=== PATIENT | male | born 1955 | race Caucasian/White ===

== ENCOUNTER 2018-03-29 15:24 | Outpatient (CLI) | payer MEDICARE, MEDICAID ==
[~2018-03-29] VITALS: Ht 182.9 cm; Wt 112.0 kg
[~2018-03-29 15:24] MED LIST: ACET-2119 PO; ALBU1.257 NEB; ALBU18HF2 IH; BACL10TA PO; CITA20TA19 PO; FURO20TA4 PO; LISI40TA4 PO; LOVA20TA2 PO; OXYGEN NS; TRAZ-146 PO; WARF-55 PO
[2018-03-29] MEDS ORDERED: LISI-645 PO (16:02)
[2018-03-29] MEDS ORDERED: FURO-149 PO (16:02)
[2018-03-29 16:51] LABS: BASOPHILS # (AUTO) 0.1 X10'3 (0-0.2); BASOPHILS % (AUTO) 1.1 % (0-1); EOSINOPHILS # (AUTO) 0.2 X10'3 (0-0.9); EOSINOPHILS % (AUTO) 3.9 % (0-6); LYMPHOCYTES # (AUTO) 1.5 X10'3 (1.1-4.8); LYMPHOCYTES % (AUTO) 24.4 % (21-51); MEAN CORPUSCULAR HEMOGLOBIN 30.3 PG (27.0-31.0); MEAN CORPUSCULAR HGB CONC 33.7 % (33.0-36.5); MEAN PLATELET VOLUME 6.5 FL (7.4-10.4); MONOCYTES # (AUTO) 0.8 X10'3 (0-0.9); MONOCYTES % (AUTO) 13.2 % (2-12); NEUTROPHILS # (AUTO) 3.4 X10'3 (1.8-7.7); NEUTROPHILS % (AUTO) 57.4 % (42-75); PRE OP HEMATOCRIT 32.4 % (42.0-52.0); PRE OP PLATELET COUNT 275 X10'3 (140-440); RED BLOOD COUNT 3.61 X10'6 (4.70-6.10); RED CELL DISTRIBUTION WIDTH 15.6 % (11.5-14.5)
[2018-03-29 17:02] LABS: PRE OP HEMOGLOBIN 10.9 g/dL (14.0-17.9)
[2018-03-29 17:16] LABS: ALBUMIN 3.5 G/DL (3.4-5.0); ALBUMIN/GLOBULIN RATIO 1.1 (1.1-1.5); ALKALINE PHOSPHATASE 70 IU/L (46-116); BLOOD UREA NITROGEN 25 MG/DL (7-18); BUN/CREATININE RATIO 18.2 (5.4-32.0); CALCIUM 8.4 MG/DL (8.5-10.1); CHLORIDE 109 MMOL/L (99-107); CREATININE 1.37 MG/DL (0.60-1.10); PRE OP ALT 21 U/L (30-65); PRE OP ANION GAP 9 (8-16); PRE OP AST 19 U/L (10-37); PRE OP BILIRUB, TOTAL 0.9 MG/DL (0.0-1.0); PRE OP GLUCOSE 105 MG/DL (70-104); PRE OP POTASSIUM 4.2 MMOL/L (3.4-5.1); PRE OP SODIUM 144 MMOL/L (135-145); TOTAL CARBON DIOXIDE 26.2 MMOL/L (24-32); TOTAL PROTEIN 6.8 G/DL (6.4-8.2); eGFR 52 ML/MIN
[2018-04-03] MEDS ORDERED: ringers solution, lacted 1,000 ML IV SCH (05:00)
[2018-04-03] MEDS ORDERED: famotidine 20mg tablet PO ONE (05:30)
== END 2018-03-29 23:59 | disposition home or self-care (01) ==
LOC: PRE-OP 15:24 → EDSTATUS 04-03 07:30
PROVIDERS: ATTEND Orthopaedic Surgery
DX: Z01.818 Encounter for other preprocedural examination (principal); M25.512 Pain in left shoulder; M75.02 Adhesive capsulitis of left shoulder; I10 Essential (primary) hypertension; Z87.891 Personal history of nicotine dependence
CPT/HCPCS: 36415; 80053; 85025

== ENCOUNTER 2020-06-19 11:09 | Observation (INO) | payer MEDICARE, MEDICAID ==
[2020-06-15 10:44] LABS: BASOPHILS # (AUTO) 0.1 X10'3 (0-0.2); EOSINOPHILS # (AUTO) 0.4 X10'3 (0-0.9); EOSINOPHILS % (AUTO) 4.7 % (0-6); LYMPHOCYTES # (AUTO) 1.5 X10'3 (1.1-4.8); MEAN CORPUSCULAR HEMOGLOBIN 30.8 PG (27.0-31.0); MEAN CORPUSCULAR VOLUME 93.2 FL (78-98); MEAN PLATELET VOLUME 6.7 FL (7.4-10.4); MONOCYTES % (AUTO) 11.2 % (2-12); NEUTROPHILS # (AUTO) 5.7 X10'3 (1.8-7.7); NEUTROPHILS % (AUTO) 66.1 % (42-75); PRE OP HEMATOCRIT 42.3 % (42.0-52.0); PRE OP PLATELET COUNT 227 X10'3 (140-440); RED BLOOD COUNT 4.54 X10'6 (4.70-6.10); RED CELL DISTRIBUTION WIDTH 13.4 % (11.5-14.5)
[2020-06-15 10:47] LABS: CLARITY,URINE CLEAR (Clear); COLOR,URINE YELLOW (Yellow); GLUCOSE, URINE NEGATIVE (Neg); KETONES,URINE NEGATIVE (Neg); LEUKOCYTE ESTERASE ,URINE NEGATIVE (Neg); NITRITES, URINE NEGATIVE (Neg); OCCULT BLOOD,URINE NEGATIVE (Neg); PH,URINE 5.5 (4.8-8.0); PROTEIN,URINE TRACE mg/dl (Neg); UROBILINOGEN,URINE 0.2 E.U/dL (0.2-1.0)
[2020-06-15 10:48] LABS: UA COLLECTION TYPE CLN CATCH MIDSTREAM
[2020-06-15 10:55] LABS: MUCUS STRANDS MANY /LPF (Neg); PRE OP PROTIME 10.8 SECONDS (9.0-12.0); SQUAMOUS EPITHELIAL CELL,UR FEW /LPF (FEW)
[2020-06-15 10:57] LABS: COARSE GRANULAR CAST 0-3 /LPF (NEGATIVE); HYALINE CASTS 0-3 /LPF (NEGATIVE)
[2020-06-15 10:58] LABS: WAXY CASTS,URINE 0-3 /LPF (NEGATIVE)
[2020-06-15 10:59] LABS: BACTERIA,URINE FEW /HPF (Neg); RBC,URINE 0-2 /HPF (0-2); WBC,URINE 0-4 /HPF (0-4)
[2020-06-15 11:05] LABS: ALBUMIN 3.5 G/DL (3.4-5.0); ALBUMIN/GLOBULIN RATIO 0.8 (1.1-1.5); ALKALINE PHOSPHATASE 71 IU/L (46-116); BLOOD UREA NITROGEN 28 MG/DL (7-18); BUN/CREATININE RATIO 18.9 (5.4-32.0); CALCIUM 9.1 MG/DL (8.5-10.1); CHLORIDE 106 MMOL/L (99-107); CREATININE 1.48 MG/DL (0.60-1.10); PRE OP ALT 16 U/L (30-65); PRE OP ANION GAP 9 (8-16); PRE OP AST 13 U/L (10-37); PRE OP BILIRUB, TOTAL 0.8 MG/DL (0.0-1.0); PRE OP GLUCOSE 90 MG/DL (70-104); PRE OP POTASSIUM 4.6 MMOL/L (3.4-5.1); PRE OP SODIUM 143 MMOL/L (135-145); TOTAL CARBON DIOXIDE 28.2 MMOL/L (24-32); TOTAL PROTEIN 7.8 G/DL (6.4-8.2); eGFR 47 ML/MIN
[2020-06-19] VITALS (18 sets, daily range): BP systolic 101–160; BP diastolic 53–102
[~2020-06-19] VITALS: Ht 182.9 cm; Wt 111.1 kg
[~2020-06-19 11:09] MED LIST changes: -ACET-2119 PO; +ACET-2615 PO; -ALBU1.257 NEB; -ALBU18HF2 IH; +APIX5TAB3 PO; -BACL10TA PO; -CITA20TA19 PO; +CYCL-1 PO; +FURO-150 PO; -FURO20TA4 PO; +GENTAMICIN IV ONE; -LOVA20TA2 PO; +METH10TA4 PO; +NORMAL SALINE IV ONE; -OXYGEN NS; +ROSU10TA2 PO; +SERT50TA PO; -TRAZ-146 PO; +TRAZ150T78 PO; -WARF-55 PO; +clindamycin-Cleocin 900mg/D5W 50 ML IV ONE; +famotidine 20mg tablet PO ONE; +ringers solution, lacted 1,000 ML IV SCH
[2020-06-19] MEDS ORDERED: INDOCYANINE GREEN 25 MG/10 ML VIAL IV ONE ×2 (13:35→15:42)
[2020-06-19] MEDS ORDERED: sevoflurane 250ml liquid IH ONE (15:21)
[2020-06-19] MEDS ORDERED: phenylephrine 10mg/ml inj. ONE (15:21)
[2020-06-19] MEDS ORDERED: rocuronium 10mg/ml inj IV ONE ×2 (15:21→16:03)
[2020-06-19] MEDS ORDERED: midazolam 2 mg/2 ml injection ONE (15:31)
[2020-06-19] MEDS ORDERED: fentaNYL /PF 50mcg/ml 5ml ampule ONE (15:31)
[2020-06-19] MEDS ORDERED: BUPIVAcaine/PF 2.5 mg/ml (0.25%) 30ml vial ONE ×2 (15:48→15:55)
[2020-06-19] MEDS ORDERED: ePHEDrine 50MG/ML INJ. ONE (16:03)
[2020-06-19] MEDS ORDERED: propofol inj 20 ML IV ONE (16:03)
[2020-06-19] MEDS ORDERED: 0.9 % SODIUM CHLORIDE 10 ML VIAL ONE (16:03)
[2020-06-19] MEDS ORDERED: ondansetron/PF 4mg/2ml inj ONE (16:04)
[2020-06-19] MEDS ORDERED: dexamethasone sod phosphate 4mg/ml inj. ONE (16:04)
[2020-06-19] MEDS ORDERED: LIDOcaine 2% (20mg/ml) 5ml vial ONE (16:04)
[2020-06-19] MEDS ORDERED: glycopyrrolate 0.2mg/ml inj ONE (17:15)
[2020-06-19] MEDS ORDERED: neostigmine methylsulfate 1 MG/ML 10ml vial ONE (17:15)
[2020-06-19] MEDS ORDERED: ondansetron/PF 4mg/2ml inj IV PRN ×2 (17:35→17:45)
--- NOTE | 2020-06-19 17:35 | NUR ---
ADMITTED TO PACU FROM OR ACCOMPANIED BY ANESTHESIA. INTIAL PHYSICAL ASSESSMENT DONE AND RECORDED. REPORT RECEIVED FROM ANESTHESIA.
[2020-06-19] MEDS ORDERED: ringers solution, lacted 1,000 ML IV SCH (17:43)
[2020-06-19] MEDS ORDERED: HYDROmorphone inj. 0.5 MG/0.5 ML DISP.SYRIN IV PRN ×2 (17:45)
[2020-06-19] MEDS ORDERED: proCHLORperazine 10 MG/2 ml inj IV PRN (17:45)
[2020-06-19] MEDS ORDERED: acetaminophen 1,000mg/100ml IV 100 ML IV PRN (17:45)
[2020-06-19] MEDS ORDERED: meperidine/PF 25mg/ml syringe IV PRN (17:45)
[2020-06-19] MEDS ORDERED: morphine 2 MG/ML inj. syringe IV PRN (17:45)
[2020-06-19] MEDS ORDERED: morphine 4 MG/ML inj SYRINge ONE (17:45)
--- NOTE | 2020-06-19 18:00 | NUR ---
C/O of surgical site pain, medicated as ordered with Morphine, with some improvement.
[2020-06-19] MEDS: morphine 4 MG/ML inj SYRINge IV PRN ×2 (18:04→18:16)
--- NOTE | 2020-06-19 18:45 | NUR ---
PACU DISCHARGE CRITERIA MET, REPORT GIVEN TO FLOOR. DENIES PAIN OR DISCOMFORT, TRANSFERRED TO ROOM IN STABLE GOOD CONDITION.
[2020-06-19] MEDS ORDERED: cyclobenzaprine 10mg tablet PO PRN (19:10)
--- NOTE | 2020-06-19 19:14 | NUR ---
Received report from Claudia Recovery nurse. Patient arrived to unit at 1900, ALOx4, Three lap sites CDI, Gualberto to right lower abdomen, drained 80ml of bloody drainage. Post op vitals are hooked up. Will continue to monitor.
[2020-06-19] MEDS: HYDROcodone/acetaminophen 10/325mg tab PO PRN (20:10)
[2020-06-19] MEDS ORDERED: lisinopril 20mg tablet PO SCH (21:00)
[2020-06-19] MEDS ORDERED: atorvastatin 20mg tablet PO SCH (21:00)
[2020-06-19] MEDS ORDERED: traZODone 50mg tablet PO SCH (21:00)
[2020-06-19] MEDS ORDERED: sertraline 50mg tablet PO SCH (21:00)
[2020-06-19] MEDS: acetaminophen 325mg tablet PO SCH (21:31)
[2020-06-19] MEDS: apixaban 5mg tablet PO SCH (21:32)
[2020-06-19] MEDS: furosemide 20MG tablet PO SCH (21:34)
[2020-06-19] MEDS: potassium CL 20mEq in D5-1/2NS 1,000 ML IV SCH (22:50)
[2020-06-20 00:12] VITALS: BP 127/63
[2020-06-20] MEDS: HYDROcodone/acetaminophen 10/325mg tab PO PRN ×2 (00:38→05:57)
[2020-06-20] MEDS: metroNIDAZOLE-Flagyl 500mg/NS 100 ML IV SCH ×2 (00:45→08:14)
[2020-06-20] MEDS: potassium CL 20mEq in D5-1/2NS 1,000 ML IV SCH ×2 (01:33→08:14)
[2020-06-20 04:00] VITALS: BP 107/61
[2020-06-20] MEDS ORDERED: morphine 2 MG/ML inj. syringe IV PRN (05:45)
[2020-06-20 06:13] LABS: BASOPHILS # (AUTO) 0.1 X10'3 (0-0.2); BASOPHILS % (AUTO) 0.6 % (0-1); EOSINOPHILS % (AUTO) 0 % (0-6); HEMATOCRIT 34.1 % (42.0-52.0); HEMOGLOBIN 11.6 g/dl (14.0-17.9); LYMPHOCYTES # (AUTO) 0.5 X10'3 (1.1-4.8); LYMPHOCYTES % (AUTO) 5.2 % (21-51); MEAN CORPUSCULAR HEMOGLOBIN 31.6 PG (27.0-31.0); MEAN CORPUSCULAR VOLUME 92.8 FL (78-98); MEAN PLATELET VOLUME 6.6 FL (7.4-10.4); MONOCYTES # (AUTO) 0.3 X10'3 (0-0.9); MONOCYTES % (AUTO) 3.6 % (2-12); NEUTROPHILS # (AUTO) 8.7 X10'3 (1.8-7.7); NEUTROPHILS % (AUTO) 90.6 % (42-75); PLATELET COUNT 251 X10'3 (140-440); RED BLOOD COUNT 3.67 X10'6 (4.70-6.10); RED CELL DISTRIBUTION WIDTH 12.6 % (11.5-14.5); WHITE BLOOD COUNT 9.6 X10'3 (4.5-11.0)
--- NOTE | 2020-06-20 06:25 | NUR ---
Patient in room [id number]. I have received report from DERRICK [facility] [employer], Student nurse and had the opportunity to ask questions and assume patient care.
[2020-06-20 06:27] LABS: ALBUMIN 2.9 G/DL (3.4-5.0); ANION GAP 7 (8-16); BLOOD UREA NITROGEN 25 MG/DL (7-18); BUN/CREATININE RATIO 16.7 (5.4-32.0); CHLORIDE 102 MMOL/L (99-107); GLUCOSE 166 MG/DL (70-104); POTASSIUM 4.9 MMOL/L (3.5-5.1); SODIUM 135 MMOL/L (135-145); TOTAL CARBON DIOXIDE 26.3 MMOL/L (24-32); eGFR 47 ML/MIN
[2020-06-20 06:30] VITALS: BP 112/70
--- NOTE | 2020-06-20 06:52 | NUR ---
Report given with BARBARA Monterroso student to DERRICK Quach. I also have assessed all his documentation, and assessments and am in agreeance with them.
--- NOTE | 2020-06-20 07:00 | NUR ---
Problems reprioritized. Patient report given, questions answered & plan of care reviewed with DERRICK Quach.
[2020-06-20] MEDS ORDERED: methylphenidate 5mg tablet PO SCH (08:00)
[2020-06-20] MEDS ORDERED: levoFLOXACIN-Levaquin 750MG/D5 150 ML IV SCH (08:00)
[2020-06-20] MEDS: furosemide 20MG tablet PO SCH (08:14)
[2020-06-20] MEDS: apixaban 5mg tablet PO SCH (08:14)
[2020-06-20] MEDS: acetaminophen 325mg tablet PO SCH (08:15)
[2020-06-20] MEDS ORDERED: benzocaine/menthol oral lozeng 1 EACH BOX MM PRN (08:45)
[2020-06-20] MEDS: oxyCODONE/APAP 10/325mg tablet PO PRN ×2 (10:24→14:28)
[2020-06-20 11:00] VITALS: BP 122/71
[2020-06-20] MEDS ORDERED: OXYC1TAB17 PO (14:39)
--- NOTE | 2020-06-20 15:45 | NUR ---
DC inst provided to pt. IV DC'd, tip intact. All belongings sent w/pt. WC to front lobby.
== END 2020-06-20 15:44 | disposition home or self-care (01) ==
LOC: PAS 11:09 → PACU 17:33 → SUR 3N 18:51
PROVIDERS: ADMIT Surgery; ATTEND Surgery
DX: K81.1 Chronic cholecystitis (principal); Z20.828 Contact with and (suspected) exposure to other viral communicable diseases; Z91.040 Latex allergy status; Z88.0 Allergy status to penicillin
CPT/HCPCS: 36415; 47562; 80048; 80053; 81001; 82948; 85025; 85610; 85730; 87635; 93005; 96361; 96365; 96366; 96367; 96375; G0378; J1100; J1580; J1956; J2001; J2250; J2270; J2370; J2405; J2704; J2710; J3010; J3480; J3490; J7120; S2900; A4215; A4618; A6402